=== PATIENT | male | born 1955 | race Caucasian/White ===

== ENCOUNTER 2018-02-04 12:35 | Outpatient (REF) | payer BC, SELFPAY | END 2018-02-04 12:36 | LOC: NCHCN 12:35 | PROVIDERS: PCP Internal Medicine; Visit Provider Internal Medicine | DX: L02.419 Cutaneous abscess of limb, unspecified (principal) | CPT/HCPCS: 87070; 87205 ==

== ENCOUNTER 2018-05-26 11:11 | Outpatient (REF) | payer BC, SELFPAY ==
[2018-05-26 21:24] LABS: BUN 17 mg/dL (7-18); CREATININE 0.91 mg/dL (0.70-1.30)
== END 2018-05-26 11:31 ==
LOC: LBN 11:11
PROVIDERS: PCP Internal Medicine; Visit Provider Surgery Vascular Surgery
DX: I71.2 Thoracic aortic aneurysm, without rupture (principal)
CPT/HCPCS: 84520; 82565

== ENCOUNTER 2018-07-04 08:41 | Outpatient (REF) | payer BC, SELFPAY ==
[2018-07-04 21:49] LABS: HCT 44.9 % (40.0-50.0); HGB 14.5 g/dL (13.5-17.5); Mean Corp. HGB Concentration 32.3 g/dL (32.0-36.0); Mean Corpuscular Hemoglobin 27.4 pg (27.0-33.0); Mean Corpuscular Volume 84.9 fL (80-95); Mean Platelet Volume 9.4 fL (8.0-11.0); Platelet Count 297 x1000/uL (130-400); RBC 5.29 m/cumm (4.50-6.00); RBC Distribution Width 13.7 % (11.8-14.1); White Blood Cell Count 8.09 k/cumm (4.4-10.8)
[2018-07-04 22:06] LABS: BUN 15 mg/dL (7-18); CREATININE 0.94 mg/dL (0.70-1.30)
[2018-07-04 22:11] LABS: INR 0.9 (0.9-1.1); Prothrombin Time 9.3 sec (9.3-11.0)
== END 2018-07-04 09:01 ==
LOC: LBN 08:41
PROVIDERS: PCP Internal Medicine; Referring Provider Surgery Vascular Surgery; Visit Provider Internal Medicine
DX: I71.2 Thoracic aortic aneurysm, without rupture (principal)
CPT/HCPCS: 84520; 85027; 82565; 85610